=== PATIENT | female | born 1965 | race Caucasian/White ===

== ENCOUNTER 2016-12-18 00:44 | Emergency (ER) | payer OTHER, BC ==
[~2016-12-18] VITALS: Ht 162.6 cm; Wt 106.6 kg
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
[2016-12-18] MEDS ORDERED: DICLOFENAC (01:10)
[2016-12-18] MEDS ORDERED: GLIPIZIDE (01:10)
[2016-12-18] MEDS ORDERED: LISINOPRIL (01:10)
[2016-12-18] MEDS ORDERED: CITALOPRAM (01:10)
[2016-12-18] MEDS ORDERED: KETOROLAC 60 MG/2 ML VIAL IM ONE (01:15)
[2016-12-18] MEDS ORDERED: METHOCARBAMOL 500 MG (ROBAXIN) TABLET PO ONE (01:15)
[2016-12-18] MEDS ORDERED: HYDR-3820 PO (02:17)
[2016-12-18] MEDS ORDERED: CYCL10TA9 PO (02:17)
[2016-12-18 02:23] VITALS: BP 135/89
--- NOTE | 2016-12-18 07:59 | Diagnostic Imaging Report ---
PROCEDURE: CT chest without contrast. TECHNIQUE: Multiple contiguous axial images were obtained through the chest without the use of intravenous contrast. INDICATION: Neck and chest pain. COMPARISON: No comparison is available. FINDINGS: The lungs demonstrate some patchy linear opacities at the right base most compatible with dependent atelectasis. The lungs are otherwise clear. There is no focal consolidation. There is no effusion or pneumothorax. No pulmonary nodule or mass demonstrated. The thoracic aorta appears normal in caliber. Mild aortic atherosclerosis is present. There is no mediastinal or axillary adenopathy demonstrated. There is no pericardial effusion. Soft tissues at the base of the neck demonstrate an apparent right-sided thyroid nodule. There have been previous surgical changes of anterior cervical discectomy and fusion. Imaging through the upper abdomen demonstrates an exophytic 3.4 cm solid lesion arising from the medial left kidney. This should be considered a renal cell carcinoma unless otherwise proven. No acute or suspicious osseous abnormalities are evident. IMPRESSION: 1. A 3.4 cm solid lesion arising from the medial aspect of the left kidney. This should be considered a renal cell carcinoma unless otherwise proven. Further assessment could be performed with contrast-enhanced CT or MRI. 2. Other than minimal right base dependent atelectasis, the lungs appear clear. 3. No thoracic adenopathy evident. 4. No acute or suspicious osseous abnormality demonstrated. 5. I agree with the preliminary stat rad report. Dictated by: Dictated on workstation # [id number]
--- NOTE | 2016-12-18 08:16 | Diagnostic Imaging Report ---
EXAMINATION: CT cervical and thoracic spine. INDICATION: Pain. FINDINGS: Alignment of the cervical and thoracic spine demonstrates slight retrolisthesis of C5 on C6 and is otherwise unremarkable. There is straightening of the cervical lordosis. There is normal alignment of the craniocervical junction. The facets are normally aligned. There has been prior anterior cervical discectomy and fusion of C6-C7. There is no screw fracture or abnormal lucency about the screws. There are advanced degenerative endplate changes above this level at the C5-C6 level with advanced loss of disc space height and endplate and uncovertebral osteophytes. There appears to be only mild narrowing of the central canal and of the neural foramina. No other significant canal or foraminal stenosis is evident within the cervical spine. Within the thoracic spine, there is no evidence to suggest significant thoracic canal or neuroforaminal stenosis. Mild multilevel degenerative endplate changes are noted. Paraspinal soft tissues appear unremarkable. Exophytic lesion arising from the left kidney is again demonstrated and suspect for neoplasm. The lungs appear clear. IMPRESSION: 1. Previous anterior cervical discectomy and fusion of C6-C7 with no evidence of hardware complication. 2. Slight retrolisthesis and advanced degenerative endplate changes at the level above the fusion at C5-C6 with mild narrowing of the central canal and neural foramina at that level. 3. Cervical and thoracic spine alignment otherwise normal. No acute osseous abnormality demonstrated. 4. No evidence of significant thoracic canal or neuroforaminal stenosis. 5. Reidentification of a solid exophytic mass arising from the left kidney suspect for neoplasm. This is also described on the separately dictated CT of the chest. Dictated by: Dictated on workstation # [id number]
== END 2016-12-18 02:23 | disposition home or self-care (01) ==
LOC: ER 00:51
DX: S13.4XXA Sprain of ligaments of cervical spine, initial encounter (principal); S23.3XXA Sprain of ligaments of thoracic spine, initial encounter; S29.011A Strain of muscle and tendon of front wall of thorax, initial encounter; I10 Essential (primary) hypertension; E11.9 Type 2 diabetes mellitus without complications; Z98.890 Other specified postprocedural states; V40.0XXA Car driver injured in collision with pedestrian or animal in nontraffic accident, initial encounter; Y92.411 Interstate highway as the place of occurrence of the external cause
CPT/HCPCS: 71250; 72125; 72128; 96372; 99282